=== PATIENT | female | born 1990 | race Caucasian/White ===

== ENCOUNTER 2018-11-30 06:40 | Inpatient (IN) | payer OTHER, MEDICAID ==
[2018-11-30] MEDS: LACTATED RINGER'S 1,000 ML IV ×2 (07:55→10:49)
[2018-11-30] MEDS ORDERED: BUTORPHANOL 2 MG INJ IV (08:00)
[2018-11-30] MEDS ORDERED: MISOPROSTOL 200 MCG TAB PR ×2 (08:00→18:30)
[2018-11-30] MEDS ORDERED: LIDOCAINE 1% (MPF) 30 ML INJ INJ (08:00)
[2018-11-30] MEDS ORDERED: OXYTOCIN 30 UNITS/LR 500 ML IV ×3 (08:00→18:30)
[2018-11-30] MEDS ORDERED: CARBOPROST 250 MCG INJ IM ×2 (08:00→18:30)
[2018-11-30] MEDS ORDERED: IBUPROFEN 600 MG TAB PO (08:00)
[2018-11-30] MEDS ORDERED: METHYLERGONOVINE 0.2 MG INJ IM (08:00)
[2018-11-30 08:02] LABS: ADD MAN DIFF? NO
[2018-11-30 08:05] LABS: BASOPHILS % 0.6 % (0.0-2.0); EOSINOPHILS # 0.1 10^3/ul (0.0-0.5); EOSINOPHILS % 1.6 % (0.0-7.0); HEMATOCRIT 33.6 % (37.0-47.0); HEMOGLOBIN 10.9 g/dl (12.0-16.0); LYMPHOCYTES % 28.6 % (15.0-51.0); MEAN CORPUSCULAR HEMOGLOBIN 29.5 pg (29.0-33.0); MEAN CORPUSCULAR HGB CONC 32.4 g/dl (32.0-37.0); MEAN CORPUSCULAR VOLUME 90.8 fl (82.0-101.0); MEAN PLATELET VOLUME 12.3 fl (7.4-10.4); MONOCYTE # 0.5 10^3/ul (0.3-0.9); MONOCYTES % 7.2 % (0.0-11.0); NEUTROPHIL # 4.3 10^3/ul (1.6-7.5); NEUTROPHILS % 61.7 % (39.0-77.0); PLATELET COUNT 287 10^3/UL (140-415); RED CELL DISTRIBUTION WIDTH 14.3 % (11.5-14.5)
[2018-11-30 08:05] LABS: WHITE BLOOD COUNT 6.9 10^3/ul (4.8-10.8)
[2018-11-30] MEDS: AMPICILLIN 2 GM/NS (PMX) 100 ML IV (08:25)
[2018-11-30] MEDS: OXYTOCIN 30 UNITS/LR 500 ML IV ×3 (08:26→21:59)
[2018-11-30 08:30] LABS: PARTIAL THROMBOPLASTIN TIME 28.6 Sec (23.0-35.0); PROTIME 12.3 Sec (11.9-14.9)
[2018-11-30] MEDS ORDERED: FENTAnyl 2MCG/ML-ROPIV 0.2% 100 ML (10:57)
[2018-11-30] MEDS ORDERED: ONDANSETRON 4 MG INJ IV ×2 (11:00→18:30)
[2018-11-30] MEDS ORDERED: NALOXONE (0.4 MG/ML) INJ IV (11:00)
[2018-11-30] MEDS ORDERED: HYDROmorphONE 0.5 MG/0.5 ML SYG IV ×2 (11:00)
[2018-11-30] MEDS ORDERED: KETOROLAC 30 MG INJ IV (11:00)
[2018-11-30] MEDS ORDERED: FENTAnyl 2MCG/ML-ROPIV 0.2% 100 ML BAG EPI (11:00)
[2018-11-30] MEDS ORDERED: DIPHENHYDRAMINE 50 MG INJ IV ×2 (11:00→18:30)
[2018-11-30] MEDS: AMPICILLIN 1 GM/NS (PMX) 50 ML IV (16:29)
[2018-11-30 16:51] LABS: RAPID PLASMA REAGIN NONREACTIVE (NR)
[2018-11-30] MEDS ORDERED: NA PHOSPHATE/BIPHOS 133 ML ENEMA PR (18:30)
[2018-11-30] MEDS ORDERED: SENNA/DOCUSATE NA (8.6MG/50MG) TAB PO (18:30)
[2018-11-30] MEDS ORDERED: MAGNESIUM HYDROXIDE 30ML CUP PO (18:30)
[2018-11-30] MEDS ORDERED: ONDANSETRON 4 MG TAB PO (18:30)
[2018-11-30] MEDS ORDERED: HYDROCODONE/APAP (5/325) TAB PO (18:30)
[2018-11-30] MEDS ORDERED: DIPHENHYDRAMINE 25 MG CAP PO (18:30)
[2018-11-30] MEDS: LANOLIN HPA 1 PKT TOP (21:14)
[2018-11-30] MEDS: SENNA/DOCUSATE NA (8.6MG/50MG) TAB PO (21:14)
[2018-11-30] MEDS: WITCH HAZEL/GLYCERIN PAD PR (21:15)
[2018-11-30] MEDS: BENZOCAINE 20% 56 ML SPRAY TOP (21:15)
[2018-11-30] MEDS: DIBUCAINE 1% 30 GM OINT TOP (21:16)
[2018-12-01] MEDS: IBUPROFEN 600 MG TAB PO ×5 (00:19→23:39)
[2018-12-01] MEDS: LACTATED RINGER'S 1,000 ML IV* ×3 (01:40→10:15)
[2018-12-01] MEDS: HYDROCODONE/APAP (5/325) TAB PO ×2 (03:42→09:04)
[2018-12-01 08:38] LABS: ADD MAN DIFF? NO
[2018-12-01 08:49] LABS: WHITE BLOOD COUNT 10.3 10^3/ul (4.8-10.8)
[2018-12-01 08:49] LABS: BASOPHIL # 0.1 10^3/ul (0.0-0.1); BASOPHILS % 0.5 % (0.0-2.0); EOSINOPHILS # 0.1 10^3/ul (0.0-0.5); EOSINOPHILS % 1.4 % (0.0-7.0); HEMATOCRIT 30.2 % (37.0-47.0); HEMOGLOBIN 9.7 g/dl (12.0-16.0); LYMPHOCYTES # 2.6 10^3/ul (0.8-2.9); MEAN CORPUSCULAR HEMOGLOBIN 29.6 pg (29.0-33.0); MEAN CORPUSCULAR HGB CONC 32.1 g/dl (32.0-37.0); MEAN CORPUSCULAR VOLUME 92.1 fl (82.0-101.0); MEAN PLATELET VOLUME 12.5 fl (7.4-10.4); MONOCYTE # 0.7 10^3/ul (0.3-0.9); MONOCYTES % 7.1 % (0.0-11.0); NEUTROPHIL # 6.8 10^3/ul (1.6-7.5); NEUTROPHILS % 65.5 % (39.0-77.0); PLATELET COUNT 257 10^3/UL (140-415); RED BLOOD COUNT 3.28 10^6/ul (4.20-5.40); RED CELL DISTRIBUTION WIDTH 14.2 % (11.5-14.5)
[2018-12-01] MEDS: SENNA/DOCUSATE NA (8.6MG/50MG) TAB PO ×2 (09:04→21:50)
[2018-12-02] MEDS: IBUPROFEN 600 MG TAB PO (05:33)
[2018-12-02] MEDS: MEASLES,MUMPS,RUBELLA VACCINE INJ SC* (09:00)
[2018-12-02] MEDS: VARICELLA VACCINE LIVE/PF 1,350 UNIT/0.5 ML ML SC* (09:00)
[2018-12-02] MEDS: DIPHTH/TET/ACEL PERTUSS (ADULT) 0.5 ML VIAL IM* (09:00)
[2018-12-02] MEDS: HYDROCODONE/APAP (5/325) TAB PO (09:16)
[2018-12-02] MEDS: SENNA/DOCUSATE NA (8.6MG/50MG) TAB PO (09:16)
== END 2018-12-02 12:53 | disposition home or self-care (01) | DRG 807 ==
LOC: OBT 06:40 → L-D 06:40 → OBT 07:10 → L-D 07:10 → PP1 20:40
PROVIDERS: Specialist
PROC: 10E0XZZ Delivery of Products of Conception, External Approach (ICD-10-PCS; principal; 2018-11-30)
DX: O80 Encounter for full-term uncomplicated delivery (principal); Z37.0 Single live birth; Z3A.39 39 weeks gestation of pregnancy
CPT/HCPCS: 62319; 76815; 85025; 85610; 85730; 86592; 86850; 86900; 86901; 99464